=== PATIENT | female | born 1965 | race African-American/Black ===

== ENCOUNTER 2020-08-22 18:00 | Emergency (ER) | payer BC, MEDICAID ==
[~2020-08-22] VITALS: Ht 162.6 cm; Wt 63.5 kg
[2020-08-22 18:03] VITALS: BP 140/76
[2020-08-22] MEDS ORDERED: IBUPROFEN 800 MG TAB PO ONE (19:15)
[2020-08-22] MEDS ORDERED: ACETAMINOPHEN 500 MG TAB PO ONE (19:15)
[2020-08-22] MEDS ORDERED: PENICILLIN G BENZ 1200000 UNITS/2 ML SYRG IM ONE (21:30)
== END 2020-08-22 21:58 | disposition home or self-care (01) ==
LOC: ER 18:00
DX: J02.0 Streptococcal pharyngitis (principal); Z20.822 Contact with and (suspected) exposure to COVID-19; Z88.0 Allergy status to penicillin
CPT/HCPCS: 36415; 87426; 87804; 87880

== ENCOUNTER 2021-11-30 01:50 | Emergency (ER) | payer MEDICAID, OTHER ==
[2021-11-30 02:15] VITALS: BP 140/90
== END 2021-11-30 08:05 | disposition left against medical advice (07) ==
LOC: ER 01:50
DX: R50.9 Fever, unspecified (principal); J02.9 Acute pharyngitis, unspecified; R05.9 Cough, unspecified; Z53.21 Procedure and treatment not carried out due to patient leaving prior to being seen by health care provider

== ENCOUNTER 2025-04-19 18:19 | Emergency (ER) | payer OTHER ==
[~2025-04-19] VITALS: Ht 162.6 cm; Wt 70.0 kg
[2025-04-19 19:37] VITALS: BP 166/88; PULSE 74; RESP 18; TEMP 98.6; O2SAT 99
--- NOTE | 2025-04-19 19:42 | DVH ---
CLINICAL INDICATION: 1ST DIGIT INJURY TECHNIQUE: 3 radiographic views of the a lucent line along the lateral corner of the distal phalanx of the left great toe. Correlate correlate for clinical tenderness over this area which may represent a nondisplaced fracture. Comparison: None FINDINGS/IMPRESSION: Bony alignment is normal. Questionable nondisplaced fracture proximal aspect distal phalanx lateral corner which appears to be intra-articular if representing renal trauma.
[2025-04-19] MEDS ORDERED: IBUP-1456 PO (19:58)
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
== END 2025-04-19 20:10 | disposition home or self-care (01) ==
LOC: ER 18:19
DX: S92.425A Nondisplaced fracture of distal phalanx of left great toe, initial encounter for closed fracture (principal); Z79.899 Other long term (current) drug therapy; Z88.0 Allergy status to penicillin; X58.XXXA Exposure to other specified factors, initial encounter; Y93.89 Activity, other specified; Y92.89 Other specified places as the place of occurrence of the external cause; Y99.8 Other external cause status
CPT/HCPCS: 73630